=== PATIENT | male | born 1985 | race Caucasian/White ===

== ENCOUNTER 2021-11-23 08:00 | Outpatient (CLI) | payer MEDICARE, MEDICAID ==
--- NOTE | 2021-11-23 21:08 | XRAY Report ---
PROCEDURE: Chest 2 View X-Ray INDICATIONS: VIRAL SYNDROME TECHNIQUE: 2 view(s) of the chest. COMPARISON: None. FINDINGS: Surgical changes and devices: None. Lungs and pleura: No pleural effusions or pneumothorax. Lungs are clear. Mediastinum: Mediastinal contours are normal. Heart size is normal. Bones and chest wall: No suspicious bony abnormalities. Soft tissues appear unremarkable. IMPRESSION: No acute cardiopulmonary pathology. Reviewed by: Joesph London MD on 11/23/2021 9:07 PM [facility] Approved by: Joesph London MD on 11/23/2021 9:07 PM [facility] Station ID: [id number]
== END 2021-11-23 23:59 | disposition home or self-care (01) ==
LOC: DI.N 08:00
PROVIDERS: ATTEND Nurse Practitioner
DX: B34.9 Viral infection, unspecified (principal); R09.81 Nasal congestion; Z20.822 Contact with and (suspected) exposure to COVID-19
CPT/HCPCS: 71046; U0004

== ENCOUNTER 2024-01-11 08:00 | Outpatient (CLI) | payer MEDICARE, MEDICAID | END 2024-01-11 23:59 | disposition home or self-care (01) | LOC: LAB.N 08:00 | PROVIDERS: ATTEND Family Medicine | DX: B80 Enterobiasis (principal) | CPT/HCPCS: 87177; 87209 ==

== ENCOUNTER 2024-03-13 08:00 | Outpatient (CLI) | payer MEDICARE, MEDICAID | END 2024-03-13 23:59 | disposition home or self-care (01) | LOC: LAB.N 08:00 | PROVIDERS: ATTEND Physician Assistant Medical | DX: L29.0 Pruritus ani (principal) | CPT/HCPCS: 87177; 87209 ==

== ENCOUNTER 2024-04-29 08:00 | Outpatient (CLI) | payer MEDICARE, MEDICAID | END 2024-04-29 23:59 | disposition home or self-care (01) | LOC: LAB.R 08:00 | DX: B80 Enterobiasis (principal) | CPT/HCPCS: 87177; 87209 ==